=== PATIENT | female | born 1955 | race Caucasian/White ===

== ENCOUNTER → 2018-11-19 10:00 | Outpatient (CLI) | payer BC, SELFPAY ==
--- NOTE | 2018-11-19 10:05 | MM_ITS ---
PROCEDURE: MM DIG SCREENING MAMM BI W/CAD CLINICAL INDICATION: SCREENING COMPARISON: DMSB DIGITAL MAMM-SCREEN BILATERAL from 03/30/2012 DMSB DIG MAMM-SCREEN BUDDY from 01/02/2015 DMSB DIG MAMM-SCREEN BUDDY W/CAD from 11/18/2016 TECHNIQUE: Standard CC and MLO images were obtained. R2 CAD reviewed. FINDINGS: Scattered fibroglandular densities are seen in the central portions of both breasts. There are couple of benign-appearing microcalcifications in each breast. There is a stable tiny benign-appearing nodular density upper-outer quadrant left breast. There is no suspicious lesion and no suspicious microcalcifications. IMPRESSION: Fibrofatty parenchyma with no suspicious lesions seen BI-RAD Category: 2 Benign Finding(s) FOLLOW-UP: 1YR 1 Year Follow-up (A letter has been sent to the patient regarding results of the study.) Dictated by: Dr. Jude Ryan MD 11/19/2018 13:[address] Jude Ryan MD in [place] 11/19/2018 13:29
--- NOTE | 2018-11-19 10:06 | XR_ITS ---
PROCEDURE: XR DEXA AXIAL SKELETON CLINICAL HISTORY: POST MENOPAUSAL history of fracture as an adult COMPARISON: No exams were available for comparison FINDINGS: The average BMD lumbar spine L1 through L4 is 1.166 grams/centimeter squared and the T-score is -0.1. The total BMD left hip is 0.990 grams/centimeter sq with T-score -0.1. The left femoral neck is 0.906 g per cm sq with a T-score -1.0. IMPRESSION: Normal T-score is lumbar spine and left hip though the left femoral neck is borderline osteopenia Dictated by: Dr. Jude Ryan MD 11/19/2018 13:[address] Jude Ryan MD in [place] 11/19/2018 13:08
== END ==
PROVIDERS: PCP Nurse Practitioner Family; Visit Provider Internal Medicine Adolescent Medicine
DX: Z12.31 Encounter for screening mammogram for malignant neoplasm of breast (principal); Z13.820 Encounter for screening for osteoporosis; Z78.0 Asymptomatic menopausal state
CPT/HCPCS: 77067; 77080

== ENCOUNTER → 2020-11-06 16:44 | Outpatient (CLI) | payer BC, SELFPAY | PROVIDERS: PCP Nurse Practitioner Family; Visit Provider Nurse Practitioner | DX: Z20.822 Contact with and (suspected) exposure to COVID-19 (principal) | CPT/HCPCS: C9803; U0003; U0005 ==

== ENCOUNTER → 2021-03-11 08:21 | Outpatient (CLI) | payer BC, SELFPAY ==
--- NOTE | 2021-03-11 08:33 | MM_ITS ---
PROCEDURE INFORMATION: Exam: MG Bilateral Screening 3D Mammography Exam date and time: 03/11/2021 8:33 AM Age: 65 years old Clinical indication: Encounter for screening mammogram for malignant neoplasm of breast TECHNIQUE: Imaging protocol: Bilateral Screening tomosynthesis and 2D mammography including computer-aided detection (CAD) when performed. COMPARISON: 1. MG MM DIG SCREENING MAMM BI W/CAD 11/19/2018 10:42 AM 2. MG DMSB DIG MAMM-SCREEN BUDDY W/CAD 11/18/2016 9:47 AM FINDINGS: MAMMOGRAPHY: Breast composition: The breast tissue is composed of scattered areas of fibroglandular density. Mass: None. Architectural distortion: None. Calcifications: No suspicious calcifications. Asymmetric density: None. Skin thickening: None. Axillary adenopathy: None. IMPRESSION: No mammographic evidence of malignancy. Annual screening is recommended unless otherwise clinically indicated. ASSESSMENT: BI-RADS Category 1: Negative
[2021-03-11 10:11] LABS: Alanine Aminotransferase 28 U/L (12-78); Albumin Level 4.9 g/dl (3.5-5.0); Alkaline Phosphatase 106 U/L (38-126); Anion Gap 13.8 mEq/L (5-15); Aspartate Amino Transferase 29 U/L (14-36); Bilirubin,Total 0.7 mg/dl (0.2-1.3); Blood Urea Nitrogen 10 mg/dl (7-17); Calcium 10.3 mg/dl (8.4-10.2); Carbon Dioxide 25 mmol/L (22.0-30.0); Chloride 108 mmol/L (98-107); Cholesterol 237 mg/dl (140-200); Estimated Glomerular Filt Rate 63 ml/min (>60); GFR (African American) 76 ML/MIN (>60); Globulin 2.5 g/dL (1.3-3.2); Glucose 100 mg/dl (74-100); HDL Cholesterol 80 mg/dl (40-60); Potassium 4.8 mmoL/L (3.5-5.1); Sodium 142 mmol/L (136-145); Total Protein,Serum 7.4 g/dl (6.3-8.2); Triglycerides 129 mg/dl (30-150); VLDL Cholesterol 26 mg/dL (0-40)
[2021-03-11 10:22] LABS: Direct LDL Cholesterol 129.27 mg/dL (100-129)
[2021-03-11 10:41] LABS: Thyroid Stimulating Hormone 2.04 uIU/mL (0.465-4.68)
== END ==
PROVIDERS: PCP Nurse Practitioner Family; Visit Provider Nurse Practitioner Family
DX: Z12.31 Encounter for screening mammogram for malignant neoplasm of breast (principal); E03.9 Hypothyroidism, unspecified; E78.5 Hyperlipidemia, unspecified
CPT/HCPCS: 36415; 77063; 77067; 80053; 80061; 84443

== ENCOUNTER → 2021-08-05 11:09 | Outpatient (CLI) | payer BC, SELFPAY ==
--- NOTE | 2021-08-05 11:15 | XR_ITS ---
FINAL REPORT CLINICAL HISTORY: RT ANTERIOR KNEE PAIN, INSTABILITY OF RT KNEE JOINT, pt states that she is experiencing posterior pain as well as anterior and that the pain started 6 months ago, no trauma. FINDINGS: RIGHT KNEE: Three views of the right knee were obtained. There is no acute fracture or dislocation. There is mild degenerative change. There is no joint effusion. Soft tissues are unremarkable. IMPRESSION: Degenerative change with no acute bony abnormality. Reviewed, Interpreted and Dictated by Isai Montelongo III, MD Transcribed by Destiny Schumacher Authenticated and [facility]
== END ==
PROVIDERS: PCP Nurse Practitioner Family; Visit Provider Nurse Practitioner Family
DX: M25.561 Pain in right knee (principal); M25.361 Other instability, right knee
CPT/HCPCS: 73562

== ENCOUNTER 2021-10-16 08:30 | Outpatient (RCR) | payer BC, SELFPAY ==
--- NOTE | 2021-08-21 11:58 | HMH.PTOPEV ---
PT Outpatient Evaluation Rehab PT Outpatient Evaluation Start: 08/21/21 11:29 Freq: Status: Active Protocol: Document 08/21/21 11:29 BRUNO (Rec: 08/21/21 11:57 BRUNO [id number]) Electronically Signed By Tashi Rodriguez, PT 08/21/21 11:29 Outpatient Therapy Subjective History Subjective History Pt reports h/o right knee pain since April, insidious onset. Pt reports right knee pain started out w/posterior aspect soreness and stiffness, but over the last 6 weeks reports intermittent episodes on right knee catching and locking. Pt also reports right knee pain has expanded referred s/s to posterior calf and hamstring mm. Chief Complaint Pain,Stiff,Swelling,Catches/ Locks,Weakness Symptom Type Ache,Sharp,Dull Symptoms Relieved By Rest/Positioning,Heat Symptoms Aggravated By Standing,Walking Prior Functional Limitations Walking Current Functional Limitations Housework,Walking,Stairs Symptom Description Constant but Variable Level of pain today (0-10) 5 Pain scale - at its best (0-10) 5 Pain scale - at its worst (0-10) 10 Hip/Knee Eval Gait Observation General Gait Pattern Observation Antalgic Gait Assistive Device Assistive Devices None / NA Palpation Tenderness left Knee Palpation Finding Tenderness Knee Palpation Overall Comment 3/4 medial, lateral, posterior , anterior jt line MMT right Hip Flexion Strength Grade 4 Good Hip Abduction Strength Grade 4- Good- Hip Adduction Strength Grade 3+ Fair+ Hip Extension Strength Grade 4- Good- Hip External Rotation Strength Grade 4- Good- Hip Internal Rotation Strength Grade 4- Good- Knee Extension Strength Grade 5 Normal Knee Flexion Strength Grade 4 Good ROM Knee Flexion Active Range of Motion ( 0-95 degrees) left Knee Flexion Active Range of Motion ( 0-120 degrees) Effusion joint effusion knee exam standard right Mid - Patellar Circumerential Measure ( 45.5 cm) Special Tests Knee Anterior Bri Test Negative Right Knee Valgus Stress Test Positive Right Knee Varus Stress Test Positive Right Knee Darryn Test Positive Right Outpatient Therapy Assessment Impairments Problems/Impairmments Palpation Tenderness,Impaired Range of Motion,Impaired
--- NOTE | 2021-09-23 09:41 | HMH.RHREAS ---
Rehab Reassessment Rehab OP Re-assessment Start: 09/23/21 09:23 Freq: Status: Active Protocol: Document 09/23/21 09:23 BRUNO (Rec: 09/23/21 09:40 BRUNO [id number]) Electronically Signed By Tashi Rodriguez, PT 09/23/21 09:23 Rehab Re-assessment Subjective Subjective Pt reports 4/10 right knee pain this am on VAS, and feels 70-80% better overall since I Eval. Objective Objective Notes TTP: RIGHT KNEE MEDIAL JT LINE 1/4, LATERAL JT LINE 1/4, POPITEAL SPACE 2/4 GAIT: WFL ON LEVEL TERRAIN MMT: R KNEE EXT 5/5, KNEE FLX 4/5, R HIP FLX 4-4+/5, R HIP ABD 4/5, R HIP EXT 4/5, R HIP ADD 4/5 AROM: R KNEE FLX 0-110 Assessment Progress Assessment Progressing as Expected Assessment Notes IMPROVED STRENGTH, TTP, GAIT AND ROM Patient goals met STG'S 11/18 LTG'S 05/21 Goals Not Met LTG'S 09/20 Plan Plan Pt to continue w/skilled P.T. to make further improvements in ROM, strength, TTP and gait to allow for optimal function Frequency of Therapy 1-2x/wk Duration of therapy 4-6wks Time and Billing Re-Eval Time 12 Re-Eval Billing Units 1 PHYSICIAN CERTIFICATION: I certify the specified therapy services for Teryl Cheri are required, authorized, and reviewed every 30 days.
== END 2021-10-16 08:35 | disposition home or self-care (01) ==
LOC: PT 08:30
PROVIDERS: Visit Provider Nurse Practitioner Family
DX: M25.561 Pain in right knee (principal)
CPT/HCPCS: 97010; 97014; 97110; 97163; 97164; 97530; G0283

== ENCOUNTER 2023-05-11 10:28 | Outpatient (CLI) | payer BC, SELFPAY ==
--- NOTE | 2023-05-11 10:31 | MM_ITS ---
PROCEDURE INFORMATION: Exam: MG Bilateral Screening 3D Mammography Exam date and time: 05/11/2023 10:21 AM Age: 67 years old Clinical indication: Screening mammogram TECHNIQUE: Imaging protocol: Bilateral Screening tomosynthesis and 2D mammography including computer-aided detection (CAD) when performed. COMPARISON: 1. MG MM DIG SCREENING MAMM BI W/CAD 03/11/2021 8:29 AM 2. MG MM DIG SCREENING MAMM BI W/CAD 11/19/2018 10:42 AM 3. MG DMSB DIG MAMM-SCREEN BUDDY W/CAD 11/18/2016 9:47 AM 4. MG DMSB DIG MAMM-SCREEN BUDDY 01/02/2015 9:58 AM FINDINGS: MAMMOGRAPHY: Breast composition: There are scattered areas of fibroglandular density. Mass: None. Architectural distortion: No new or suspicious architectural distortion. Calcifications: No new or suspicious calcifications are present Asymmetric density: No new or suspicious asymmetric density is present Skin thickening: None. Axillary adenopathy: None. IMPRESSION: No mammographic evidence of malignancy. Recommend annual screening mammography unless otherwise clinically indicated. ASSESSMENT: BI-RADS category 1: Negative.
== END 2023-05-11 23:59 | disposition home or self-care (01) ==
LOC: RAD 10:28
PROVIDERS: PCP Nurse Practitioner Family; Visit Provider Nurse Practitioner Family
DX: Z12.31 Encounter for screening mammogram for malignant neoplasm of breast (principal)
CPT/HCPCS: 77063; 77067

== ENCOUNTER 2024-11-24 10:38 | Outpatient (CLI) | payer BC, MEDICARE, SELFPAY ==
--- NOTE | 2024-11-24 10:45 | XR_ITS ---
FINAL REPORT CLINICAL HISTORY: LT MEDIAL KNEE PAIN COMPARISON: None FINDINGS: AP, lateral and oblique views of the left knee were obtained. There is no prior exam for comparison. There is deformity of the distal femur that likely is secondary to remote fracture deformity. There is no acute osseous abnormality of the knee. Advanced degenerative change is present. There is an osteochondral defect involving the lateral femoral condyle. No acute fracture is identified. Otherwise, the soft tissues are within normal limits. IMPRESSION: Advanced degenerative change and deformity of the distal femur, likely secondary to remote fracture deformity. No acute bony abnormality is identified. Reviewed, Interpreted and Dictated by Leela Romero MD Transcribed by Carrie Jamison Authenticated and [facility]
== END 2024-11-24 23:59 | disposition home or self-care (01) ==
LOC: RAD 10:41
PROVIDERS: PCP Nurse Practitioner Family; Visit Provider Nurse Practitioner Family
DX: M17.12 Unilateral primary osteoarthritis, left knee (principal); M21.962 Unspecified acquired deformity of left lower leg
CPT/HCPCS: 73562